=== PATIENT | female | born 1995 | race Caucasian/White ===

== ENCOUNTER 2024-08-08 23:53 | Emergency (ER) | payer OTHER, SELFPAY ==
[2024-08-09 00:02] VITALS: BP 133/67; PULSE 93; TEMP 36.6; O2SAT 100; BMI 33.0
--- NOTE | 2024-08-09 00:30 | ED.SOB1 ---
HPI - SOB/Dyspnea General Chief Complaint: Shortness of Breath/Dyspnea Stated Complaint: SOB Time Seen by Provider: 08/09/24 00:06 Source: patient Mode of arrival: walk-in History of Present Illness HPI Narrative: This 29-year-old female with a history of asthma who does not smoke presents for evaluation of cough, wheezing and shortness of breath. She states she has a moist cough. It started on Monday. She was seen at urgent care and given a prescription for Levaquin. She states she has a dry cough. She has not had a fever. She has had some nasal congestion. She denies any nausea or vomiting. She has no lower extremity pain or swelling. The woman who is with her who is likely her mother states that she is becoming cyanotic when she ambulates and her lips are turning blue. She is not having any chest pain dizziness or syncope. She has no lower extremity pain or swelling. She has been using an inhaler in addition to her antibiotics. Related Data Home Medications ?Medication ?Instructions ?Recorded ?Confirmed Vitamin B 08/09/24 Vitamin D 08/09/24 albuterol 90 mcg/actuation aerosol mcg inhalation 08/09/24 inhaler levofloxacin 500 mg tablet 500 mg PO DAILY 08/09/24 08/09/24 magnesium 08/09/24 Allergies Allergy/AdvReac Type Severity Reaction Status Date / Time Sulfa (Sulfonamide Allergy Severe Swelling Verified 08/09/24 00:18 Antibiotics) of Lip/Tongue/Throat sulfamethoxazole (From Allergy Severe Swelling Verified 08/09/24 00:18 Bactrim) of Lip/Tongue/Throat trimethoprim (From Bactrim) Allergy Severe Swelling Verified 08/09/24 00:18 of Lip/Tongue/Throat venlafaxine (From Effexor) Allergy Severe Unknown Verified 08/09/24 00:18 codeine Allergy Intermediate Rash Verified 08/09/24 00:18 pseudoephedrine (From Allergy Intermediate Dizziness Verified 08/09/24 00:18 Sudafed) Penicillins Allergy Mild Unknown Verified 08/09/24 00:18 Review of Systems ROS Status of ROS 10 or more systems reviewed and unremarkable except as noted in history and below PFSH PFSH Social History Little interest or pleasure in doing things: not at all Feeling down, depressed, or hopeless: not at all Exam Narrative Exam Narrative: Vital signs and Nursing Notes reviewed: Patient is afebrile with a normal pulse, blood pressure is normal. She is not hypoxic with pulse ox of 100% on room air General: Overweight female resting comfortably on the stretcher, no respiratory distress, she speaks in complete sentence without any conversational dyspnea HEENT: Normocephalic atraumatic, mucous membranes are moist and pink, eyes are clear, normal conjunctiva, vision is grossly intact, posterior pharynx is normal in appearance. Tympanic membranes are normal bilaterally Neck: Supple, no meningeal signs Chest: Lungs are clear to auscultation with good air entry, there is no wheezing rhonchi or rales appreciated no accessory muscle use, patient is speaking in complete sentences-no chest wall tenderness to palpation CVS: Regular rate and rhythm S1-S2, no murmurs rubs or gallops, pulses are brisk and equal bilaterally Extremities: Moving all extremities, no lower extremity tenderness or swelling noted, negative Homans' sign, pulses are brisk and equal bilaterally Skin: Normal in appearance without rash,pallor, petechiae or purpura Neuro: No focal deficits Constitutional Vital Signs, click to edit/add: Last Vital Signs Temp 97.9 F 08/09/24 00:02 Pulse 93 H 08/09/24 00:02 Resp 20 08/09/24 00:02 BP 133/67 08/09/24 00:02 Pulse Ox 100 08/09/24 00:02 O2 Del Method Room Air 08/09/24 00:02 Course Vital Signs Vital signs: Vital Signs Temperature 97.9 F 08/09/24 00:02 Pulse Rate 93 H 08/09/24 00:02 Respiratory Rate 20 08/09/24 00:02 Blood Pressure 133/67 08/09/24 00:02 Pulse Oximetry 100 08/09/24 00:02 Oxygen Delivery Method Room Air 08/09/24 00:02 Temperature 97.9 F 08/09/24 00:02 Pulse Rate 93 H 08/09/24 00:02 Respiratory Rate 20 08/09/24 00:02 Blood Pressure 133/67 08/09/24 00:02 Pulse Oximetry 100 08/09/24 00:02 Oxygen Delivery Method Room Air 08/09/24 00:02 MDM - SOB/Dyspnea MDM Narrative Medical decision making narrative: This 29-year-old female presents for evaluation of an ongoing cough. The cough started on Monday. She was seen at urgent care and prescribed Levaquin. She states her cough is not resolved. She has had pneumonia in the past and is concerned that she is developing pneumonia not because she states she still has a harsh cough. Her mother states when she gets up and walks she becomes cyanotic and her lips turn blue. We did test that the emergency department. We had the patient ambulate while wearing a pulse ox and she did not become cyanotic and her pulse ox did not drop. Her pulse ox was 100% at triage. The patient is overweight, non-smoker with a history of asthma. Her lungs are clear. Her exam is benign. Due to her complaints of having pneumonia in the past and her mother stating that she was cyanotic I did a workup including a D-dimer. Her D-dimer is on the high end of normal but still normal at 0.59. She has a normal white count hemoglobin. Electrolytes are normal. Two-view chest x-ray was ordered and is reviewed by myself. There is no acute pulmonary infiltrate, she has a normal mediastinum and normal cardiac borders. She was medicated with a dose of IV Solu-Medrol. She has not had any cough or respiratory difficulty while in the emergency department. I discussed the results of the labs and x-ray with her. I explained to her that clinically she likely has a viral upper respiratory tract infection that will not benefit from antibiotics. Is up to her whether or not she continues with the Levaquin. I feel that a round of steroids and cough medicine would be more appropriate in this setting. She does have Ventolin inhaler to use. She will be discharged home with a prescription for Bromfed-DM and Medrol Dosepak. Lab Data Labs: Lab Results 08/09/24 Range/Units 00:50 WBC 6.6 (4.0-11.0) 10^3/uL RBC 4.64 (4.20-5.40) 10^6/uL Hgb 14.1 (12.0-16.0) g/dL Hct 41.4 (36.0-48.0) % MCV 89.2 (81.0-99.0) fL MCH 30.4 (26.7-34.0) pg MCHC 34.1 (29.9-35.2) g/dL RDW 11.8 (11.0-15.0) % Plt Count 332 (150-450) 10^3/uL MPV 10.8 (9.5-13.5) fL Neut % (Auto) 47.7 (43.0-75.0) % Lymph % (Auto) 32.5 (20.5-60.0) % [place] % (Auto) 13.6 H (1.7-12.0) % Eos % (Auto) 5.3 (0.9-7.0) % Baso % (Auto) 0.6 (0.2-2.0) % Neut # (Auto) 3.2 (1.4-6.5) 10^3/uL Lymph # (Auto) 2.2 (1.2-3.8) 10^3/uL [place] # (Auto) 0.9 H (0.3-0.8) 10^3/uL Eos # (Auto) 0.4 (0.0-0.7) 10^3/uL Baso # (Auto) 0.0 (0.0-0.1) 10^3/uL Abs Immat Gran (auto) 0.02 (0.00-0.03) 10^3/uL Imm/Tot Granulo (auto) 0.3 (0.0-0.5) % D-Dimer 0.59 (<=0.59) mg/L FEU Sodium 139 (136-145) mmol/L Potassium 3.6 (3.5-5.1) mmol/L Chloride 101 (98-107) mmol/L Carbon Dioxide 28.2 (21.0-32.0) mmol/L Anion Gap 13.4 BUN 14.0 (7.0-18.0) mg/dL Creatinine 0.73 (0.55-1.02) mg/dL Est GFR ( Amer) >60 (>=60 mL/min/1.73m^2) Est GFR (Non-Af Amer) >60 (>=60 mL/min/1.73m^2) BUN/Creatinine Ratio 19.2 Glucose 96 (74-106) mg/dL Calcium 9.5 (8.5-10.1) mg/dL Total Bilirubin 0.7 (0.2-1.0) mg/dL AST 8 L (15-37) U/L ALT 21 (14-59) U/L Alkaline Phosphatase 90 (46-116) U/L Total Protein 8.2 (6.4-8.2) g/dL Albumin 3.2 L (3.4-5.0) g/dL Globulin 5.0 g/dL Albumin/Globulin Ratio 0.6 Discharge Plan Discharge Chief Complaint: Shortness of Breath/Dyspnea Clinical Impression: Viral upper respiratory tract infection with cough Patient Disposition: Home, Self-Care Time of Disposition Decision: 02:04 Condition: Good Prescriptions / Home Meds: No Action levofloxacin 500 mg tablet 500 mg PO DAILY albuterol 90 mcg/actuation aerosol inhalation Vitamin D Vitamin B magnesium Print Language: Monegasque Instructions: Upper Respiratory Infection (ED) Referrals: Isis Rivas NP [Primary Care Provider] - 1 week
[2024-08-09 01:06] LABS: Basophils Percent Auto 0.6 % (0.2-2.0); Eosinophils Absolute Auto 0.4 10^3/uL (0.0-0.7); Eosinophils Percent Auto 5.3 % (0.9-7.0); Hematocrit 41.4 % (36.0-48.0); Hemoglobin 14.1 g/dL (12.0-16.0); Immature Granulocytes Abs Auto 0.02 10^3/uL (0.00-0.03); Immature Granulocytes Pct Auto 0.3 % (0.0-0.5); Lymphocytes Absolute Auto 2.2 10^3/uL (1.2-3.8); Lymphocytes Percent Auto 32.5 % (20.5-60.0); Mean Corpuscular HGB Conc 34.1 g/dL (29.9-35.2); Mean Corpuscular Hemoglobin 30.4 pg (26.7-34.0); Mean Corpuscular Volume 89.2 fL (81.0-99.0); Mean Platelet Volume 10.8 fL (9.5-13.5); Monocytes Absolute Auto 0.9 10^3/uL (0.3-0.8); Monocytes Percent Auto 13.6 % (1.7-12.0); Neutrophils Absolute Auto 3.2 10^3/uL (1.4-6.5); Neutrophils Percent Auto 47.7 % (43.0-75.0); Platelet Count 332 10^3/uL (150-450); Red Blood Count 4.64 10^6/uL (4.20-5.40); Red Cell Distribution Width 11.8 % (11.0-15.0)
[2024-08-09 01:07] LABS: White Blood Count 6.6 10^3/uL (4.0-11.0)
[2024-08-09] MEDS: METHYLPREDNISOLONE SOD SUCC PF 125 MG/2 ML VIAL IVP (01:11)
[2024-08-09 01:20] LABS: Alanine Aminotransferase 21 U/L (14-59); Albumin Globulin Ratio 0.6; Albumin Level 3.2 g/dL (3.4-5.0); Alkaline Phosphatase 90 U/L (46-116); Anion Gap 13.4; Aspartate Amino Transferase 8 U/L (15-37); BUN Creatinine Ratio 19.2; Bilirubin Total 0.7 mg/dL (0.2-1.0); Calcium 9.5 mg/dL (8.5-10.1); Carbon Dioxide 28.2 mmol/L (21.0-32.0); Chloride 101 mmol/L (98-107); Estimated GFR (African America >60 (>=60 mL/min/1.73m^2); Estimated GFR (Non-African Ame >60 (>=60 mL/min/1.73m^2); Glucose 96 mg/dL (74-106); Potassium 3.6 mmol/L (3.5-5.1); Sodium 139 mmol/L (136-145); Total Protein 8.2 g/dL (6.4-8.2)
[2024-08-09 01:21] LABS: D Dimer 0.59 mg/L FEU (<=0.59)
--- OUTSIDE RECORDS SUMMARY | 2024-08-09 01:36 | XMS_ITS | Clinical Summary ---
Author Organization [employer] Address [id number] [address] [place] [address] Care Team Providers Care Media Coordinator Name Role Phone Isis Rivas GALINA-HAT BLOCK MAKER Primary Care Provider Allergies Active Allergy Reactions Criticality Noted Date Comments Sulfamethoxazole-Trimetho prim Swelling 12/16/2016 Lip swelling Codeine Hives 12/16/2016 Venlafaxine 10/31/2023 Suicidal ideation Nitrofurantoin Monohyd/M-Cryst Facial Swelling Medium 12/29/2020 Oral swelling to lower lip noted immediately after taking Penicillins 12/16/2016 Never been given penicillin, but both parents are allergic to it Pseudoephedrine Hcl Dizziness 05/03/2020 Sulfa (Sulfonamide Antibiotics) Swelling 01/21/2017 Medications meclizine (ANTIVERT) 25 mg tablet Chew 1 tablet (25 mg total) and swallow 3 (three) times a day as needed for dizziness. TABLET 30 tablet 3 021 Active SUMAtriptan (IMITREX) 50 mg tabletIndications :Migraine with aura and without status migrainosus, not intractable Take 1 tablet (50 mg total) by mouth once as needed for migraine. May repeat in 2 hours if unresolved. Do not exceed 200 mg in 24 hours. 9 tablet 2 024 Active ondansetron ODT (ZOFRAN ODT) 4 mg disintegrating tablet Dissolve 1 tablet (4 mg total) on tongue every 8 (eight) hours as needed for nausea for up to 10 doses. 10 tablet 024 Active fluticasone propionate (FLONASE) 50 mcg/actuation nasal spray Administer 1 spray into each nostril in the morning. 16 mL 2 024 Active Additional Information Patient not taking.Reported on 07/08/2024 cyanocobalamin (vitamin B-12) 1000 MCG tablet Take 1 tablet (1,000 mcg total) by mouth in the morning. 90 tablet 3 025 Active triamcinolone (KENALOG) 0.5 % ointment Apply 1 Application topically in the morning and 1 Application before bedtime. 60 g 2 025 Active Additional Information Patient taking differently:1 Application topicalAs needed, Reported on 07/08/2024 ibuprofen (MOTRIN) 800 mg tablet Take 1 tablet (800 mg total) by mouth in the morning and 1 tablet (800 mg total) in the evening. Take with meals. 60 tablet 1 025 Active Additional Information Patient taking differently:800 mg oral2 times daily, Reported on 07/08/2024 ergocalciferol (VITAMIN D2) 1,250 mcg (50,000 unit) capsule Take 1 capsule (50,000 Units total) by mouth once a week. 12 capsule 025 Active VENTOLIN HFA 90 mcg/actuation inhalerIndication s:Mild intermittent asthma with acute exacerbation Inhale 2 puffs every 6 (six) hours as needed for wheezing or shortness of breath. 18 g 5 025 Active magnesium oxide (MAGOX) 400 mg tablet Take 1 tablet (400 mg total) by mouth in the morning. 90 tablet 3 025 Active norethindrone ac-eth estradioL (FEMHRT 03/03) 1-5 mg-mcg tablet Take 1 tablet by mouth in the morning. 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 Migraines, anxiety, depression, history of panic attacks with Urolithiasis; CT 11/21/2023 right 2.8 mm nonobstructing stone-stable CT 04/22/2024; Jake 2. Concern for medullary sponge kidneys CT 11/21/2023 ruled out by [facility] 01/20/2024 3. By history history of renal mass [address] With no renal mass with CT without and with contrast 11/21/2023 4. Sexually active with By history veryrecurrent UTIs high school now just occasional UTI with gross hematuria with positive E coli culture 10/24/2014 other [facility] cultures from 2014, July, November, and December 2020 5. By history prior cystoscopy x2 [facility] not by our group prior to 2013 per patient secondary to recurrent urinary infection with passing bits of tissue and blood 6. Gross hematuria by history infection related 7. Family history stones mother and aunts and uncles 8. Right flank pain identified 2023 with only nonobstructing very small right renal stone by CT and February 2024 lower midline abdominal and left flank pain 9. Ongoing delay of micturition with History childhood forced severe delay of micturition at school producing pain 10. Very low urinary volume 11. Hypomagnesuria 12. Hyperuricosuria but very normal super saturation uric acid secondary to high urinary pH 13. Hypernaturia 14. Mild hypocitraturia 15. PVR 14 mL 05/10/[address] March 2024; K[facility] December 2023; litho link February 2024 Migraine with aura and witho ut status migrainosus, not intractable 03/25/2021 Episodic recurrent vertigo 03/25/2021 Depression 03/25/2021 Anxiety 10/15/2020 Panic attack 10/15/2020 BPPV (benign paroxysmal positional vertigo), lef t 08/27/2020 Dizziness 08/11/2020 Tinnitus 08/11/2020 Palpitations 07/17/2020 Resolved Problems Problem Noted Date Diagnosed Date Resolved Date Medullary sponge kidney 11/27/202302/27 Headache 09/17/2020 12/28/2020 Vertigo of central origin, u nspecified laterality 08/27/2020 12/28/2020 Vertigo 08/11/2020 12/28/2020 Shortness of breath 07/17/2020 12/29/19 Other chest pain 07/17/2020 12/28/2020 Encounters Date Type Department Care Team Description 07/29/2024 Refill [facility] [address] [place] [address] [place] [address] Isis Rivas APRN-ARPITA 07/28/2024 Refill [facility] [address] [place] [address] [place] [address] Isis Rivas APRN-ARPITA 07/08/2024 11:40 AM EDT Office Visit [facility] [address] [place] [address] [place] [address] Isis Rivas APRN-CNP Rash (Primary Dx) 07/08/2024 Travel 07/01/2024 Refill [facility] [address] [place] [address] [place] [address] Isis Rivas APRN-ARPITA 06/07/2024 2:00 PM EDT - 06/07/2024 2:30 PM EDT Surgery [facility] - Surgery [address] [place] [address] Dheeraj Jacobs Jr., MD CYSTOSCOPY [61734 (CPT )] 06/07/2024 1:01 PM EDT - 06/07/2024 3:07 PM EDT Hospital Encounter [facility] - Surgery [address] [place] [address] Dheeraj Jacobs Jr., MD Recurrent kidney stones (Primary Dx) Discharge Disposition: Home 06/07/2024 Telephone [facility] [address] [place] [phone] Dheeraj Jacobs Jr., MD 06/07/2024 Travel 06/06/2024 3:50 PM EDT Support Visit [facility] - Pre Admit [address] [place] [address] 06/04/2024 3:52 PM EDT - 06/04/2024 4:25 PM EDT Emergency [facility] - Emergency [address] [place] [phone] Jose Cotto MD Abrasion of sclera of right eye, initial encounter (Primary Dx) Discharge Disposition: Home 06/04/2024 Travel 06/04/2024 Refill [facility] [address] [place] [address] [place] [address] Isis Rivas APRN-ARPITA 05/10/2024 11:45 AM EDT Office Visit [facility] [address] [place] [address] [place] [address] [place] [address] Dheeraj Jacobs Jr., MD Urologic disorders (Primary Dx); Recurrent kidney stones; Microscopic hematuria; History of recurrent UTIs 05/10/2024 Telephone [facility] [address] [place] [address] Dheeraj Jacobs Jr., MD from Last 3 Months Immunizations Immunization Administration Dates Next Due DTaP, Unspecified 06/28/2001, 8,1996,1996,0 1996 Hep B, Adolescent or Pediatric 1996,1996,1996 HiB 02/06/1997,1996,1996 ,1996 MMR 06/28/2001,02/06/1997 OPV 1996,1996,1996 Polio, Unspecified 06/28/2001 Family History Medical History Relation Name Comments Hypertension Father Heart attack Maternal Aunt 1 Ganette Pancreatitis Maternal Aunt 1 Ganette Thyroid Issues Maternal Aunt 1 Ganette Cervical cancer Maternal Aunt 2 Sahra Anemia Maternal Grandmother Cancer Maternal Grandmother Cervical cancer Maternal Grandmother Heart attack Maternal Grandmother Kidney disease Maternal Grandmother Heart attack Maternal Uncle 1 Ray Heart attack Maternal Uncle 3 Bernabe jr. Hypertension Mother Migraines Mother Thyroid Issues Mother Anxiety disorder Other Hypotension Other Kidney disease Other Kidney disease Paternal Aunt kidney mass Relation Name Status Comments Father Alive Maternal Aunt 1 Ganette Alive Maternal Aunt 2 Sahra Alive Maternal Grandmother Alive Maternal Uncle 1 Ray Alive Maternal Uncle 2 Lester Alive Maternal Uncle 3 Bernabe jr. Alive Mother Alive Other Paternal Aunt Sister Alive Social History Tobacco Use Types Packs/Day Years Used Date Smoking Tobacco: Never Smokeless Tobacco: Never Tobacco Cessation:Counseling Given: Not Answered Alcohol Use Standard Drinks/Week Comments Yes 0 (1 standard drink = 0.6 oz pur e alcohol) occasional PHQ-2 Answer Date Recorded Total Score 11 10/31/2023 Childcare Answer Date Recorded Childcare Unknown 08/06/2018 Employment Answer Date Recorded Employment Unknown 08/06/2018 Hunger Screening Answer Date Recorded Within the past 12 months we worried whether our food would run out before we got money to buy more. Never True 05/10/2024 Within the past 12 months th e food we bought just didn't last and we didn't have money to get more. Never True 05/10/2024 Purpose - Life Answer Date Recorded Purpose and direction in life Unknown Comments No Sex and Gender Information Value Date Recorded Sex Assigned at Not on file Legal Sex Female 1:05 PM EDT Gender Identity Not on file Sexual Orientation Not on file Last Filed Vital Signs Vital Sign Reading Time Taken Comments Blood Pressure 130/72 07/08/2024 11:24 AM EDT Pulse 73 07/08/2024 11:24 AM EDT Temperature 36.8 C (98.3 F) 07/08/2024 11:24 AM EDT Respiratory Rate 18 06/04/2024 4:05 PM EDT Oxygen Saturation 98% 07/08/2024 11: 24 AM EDT Inhaled Oxygen Concentration - - Weight 97.4 kg (214 lb 12.8 oz) 025 11:24 AM EDT Height 165.1 cm (5' 5 ) 07/08/2024 11:2 4 AM EDT Body Mass Index 35.74 07/08/2024 11:24 AM EDT Plan of Treatment Upcoming Encounters Date Type Department Care Team (Late st Contact Info) Description 08/19/2024 2:40 PM EDT Office Visit [facility] [address] [place] [address] [place] [address] Isis Rivas, [employer]-HAT BLOCK MAKER [address] [place] [address], [place] [address] 10/04/2024 9:15 AM EDT Office Visit [facility] [address] [place] [address] [place] [address] Dheeraj Jacobs Jr., MD [address] [place] [address] Health Maintenance Due Date Last Done Comments DTaP,Tdap and Td Vaccines (6 - Tdap) 02/03/2007 06/28/2001, 05/29/1997, 1996, Additional history exists Adult BMI Follow Up Plan 02/03/2014 Pap Smear 02/03/2017 Influenza Vaccine 10/28/2024 Depression Screening 10/30/2024 10/31/2023 Adult BMI Screening 07/08/2025 07/08/2024 Tobacco Screening 07/08/2025 07/08/2024 Medical Devices Not on file Procedures Procedure Name Priority Date/Time Associated Diagnosis Comments GA CYSTOURETHROSCOPY 06/07/2024 2:12 PM EDT Microscopic hematuria PM ED FOREIGN BODY REMOVAL - OCULAR Routine 06/04/2024 4:11 PM EDT MEASURE POST VOID RESIDUAL Routine 05/10/2024 12:39 PM EDT Urologic disorders from Last 3 Months Results * Foreign Body Removal - Ocular (06/04/2024 4:11 PM EDT) Jose Mclean MD - 06/04/2024 4:11 PM EDT Jose Cotto MD 06/09/2024 8:33 PM Foreign Body Removal - Ocular Date/Time: 06/04/2024 4:11 PM Performed by: Jose Cotto MD Authorized by: Jose Cotto MD Consent: Consent obtained: Verbal Consent given by: Patient Risks, benefits, and alternatives were discussed: yes Risks discussed: Pain, infection and incomplete removal [place] protocol: Procedure explained and questions answered to patient or proxy's satisfaction: yes Relevant documents present and verified: yes Patient identity confirmed: Verbally with patient and hospital-assigned identification number Pre-procedure details: Imaging: None Fluorescein exam: yes Anesthesia: Local anesthetic: Tetracaine drops Procedure details: Localization method: Wood's lamp and fluorescein Foreign bodies recovered: None Post-procedure details: Confirmation: No additional foreign bodies on visualization Dressing: Antibiotic drops Procedure completion: Tolerated well, no immediate complications us Jose Cotto MD PROCEDURE/MINOR SURGICAL ORDERA BLES Final Result * Measure post void residual (05/10/2024 12:39 PM EDT) Volume 14ml MANUALLY TRANSCRIBED RESULTS us Dheeraj Jacobs Jr., MD NURSING ASSESSMENTS Marilyn arevalo Result Performing Organization Address City/State/[facility] Co de Phone Number MANUALLY TRANSCRIBED RESULTS from Last 3 Months Insurance [facility] WORKER'S COMPENSATION WORKER'S COMPENSATION [facility] Care Teams Media Coordinator Relationship Specialty Start Date End Date Isis Rivas APRN-CNP [address] [place] [phone] PCP - General Nurse Practitioner 10/31/23
--- OUTSIDE RECORDS SUMMARY | 2024-08-09 01:36 | XMS_ITS | Encounter Summary ---
Author Organization [facility] Address [id number] [address] [place] [address] Care Team Providers Care Host Coordinator Name Role Phone Isis Rivas GALINA-JACKSPOOLER Primary Care Provider Encounter Details Date Type Department Care Team (Late st Contact Info) Description 09/18/2020 [facility] [address] [place] [phone] Dede Cruz Social History Tobacco Use Types Packs/Day Years Used Date Smoking Tobacco: Never Smokeless Tobacco: Never Alcohol Use Standard Drinks/Week Comments Yes 0 (1 standard drink = 0.6 oz pur e alcohol) occasional Childcare Answer Date Recorded Childcare Unknown 08/06/2018 Employment Answer Date Recorded Employment Unknown 08/06/2018 Purpose - Life Answer Date Recorded Purpose and direction in life Unknown Comments No Sex and Gender Information Value Date Recorded Sex Assigned at Not on file Legal Sex Female 1:05 PM EDT Gender Identity Not on file Sexual Orientation Not on file COVID-19 Exposure Response Date Recorded In the last month, have you been in contact with someone who was confirmed or suspected to have Coronavirus / COVID-19? No / Unsure 09/17/2020 2:48 PM EDT documented as of this encounter Miscellaneous Notes * Telephone Encounter - Dede Cruz - 09/18/2020 9:19 AM EDT Received new patient referral. Please call patient to schedule a new patient appointment for Dizziness R51.9 (ICD-10-CM) - Intractable headache, unspecified chronicity pattern, unspecified headache type *[place] * Telephone Encounter - Pao Manzanooza - 09/18/2020 9:19 AM EDT Patient is scheduled for 10/15/20 @ 9:00am with Dr. Mott in [place] documented in this encounter Plan of Treatment Upcoming Encounters Date Type Department Care Team (Late st Contact Info) Description 08/19/2024 2:40 PM EDT Office Visit [facility] [address] [place] [address] [place] [address] Isis Rivas APRN-CNP [address] [place] [address], [place] [address] 10/04/2024 9:15 AM EDT Office Visit [facility] [address] [place] [address] [place] [address] [place] [address] Dheeraj Jacobs Jr., MD [address] [place] [phone] documented as of this encounter Visit Diagnoses Not on filedocumented in this encounter Additional Health Concerns Infection Onset Date Last Indicated Resolved Time COVID-19 Rule-Out 01/14/2024 01/14/2024 01/14/2024 6:51 PM EST documented as of this encounter Care Teams Host Coordinator Relationship Specialty Start Date End Date Isis Rivas APRN-CNP [address] [place] [phone] PCP - General Nurse Practitioner 10/31/23 documented as of this encounter
--- OUTSIDE RECORDS SUMMARY | 2024-08-09 01:36 | XMS_ITS | Clinical Summary ---
Author Organization [facility] Address [address] [place] [address] Care Team Providers Care Boring Machine Operator Double End Name Role Phone Unallocated, Noms Provider MD Primary Care Provi alyssa Allergies Active Allergy Reactions Criticality Noted Date Comments Acetaminophen-Codeine Unknown 09/15/2022 Cephalexin Swelling 09/15/2022 Codeine 12/16/2016 Nitrofurantoin Unknown 09/15/2022 Penicillins 12/16/2016 Pseudoephedrine Dizziness 09/15/2022 Sulfa Antibiotics Unknown 09/15/2022 Venlafaxine 10/31/2023 Suicidal ideation Medications albuterol (ProAir Digihaler) 90 mcg/act breath-activated inhaler (w/ sensor) Albuterol Active cholecalciferol (Vitamin D-3) 50 MCG (2000 UT) capsule Take 4,000 Units by mouth in the morning. Active cyanocobalamin (Vitamin B-12) 1000 MCG tablet Take 1,000 mcg by mouth in the morning. Active ondansetron ODT (Zofran-ODT) 4 MG disintegrating tablet Take 4 mg by mouth every 8 (eight) hours if needed 4 Active SUMAtriptan (Imitrex) 50 MG tablet Take 50 mg by mouth 1 (one) time if needed 4 Active Meclizine HCl 25 MG chewable tablet CHEW AND SWALLOW ONE TABLET EVERY 6 HOURS NEEDED FOR DIZZINESS 4 Active Cranberry-Vitamin C-Probiotic (AZO CRANBERRY PO) Take by mouth Ac tive Acetaminophen (MIDOL PO) Take by mouth Activ e norgestimate-ethin yl estradiol (Sprintec 28) 0.25-35 MG-MCG tabletIndications: Oral contraceptive pill surveillance 1 tab every day for 84 days. Then allow a withdrawal bleed for 7 days. Repeat 112 tablet 3 Active Family History Medical History Relation Name Comments Diabetes Father Hypertension Father ADD / ADHD Mother Cancer Mother Heart disease Mother Hypertension Mother Heart issues Mother's Brother Heart issues Mother's Sister Pancreatitis Mother's Sister Relation Name Status Comments Father Alive Mother Alive Mother's Brother Mother's Sister Social History Tobacco Use Types Packs/Day Years Used Date Smoking Tobacco: Never Smokeless Tobacco: Never Tobacco Cessation:Counseling Given: Not Answered Alcohol Use Standard Drinks/Week Comments Yes 1 (1 standard drink = 0.6 oz pur e alcohol) Comments No Sex and Gender Information Value Date Recorded Sex Assigned at Not on file Legal Sex Female 6:33 PM EDT Gender Identity Not on file Sexual Orientation Not on file Last Filed Vital Signs Vital Sign Reading Time Taken Comments Blood Pressure 122/76 04/10/2024 2:07 PM EST Pulse - - Temperature - - Respiratory Rate - - Oxygen Saturation - - Inhaled Oxygen Concentration - - Weight 88.5 kg (195 lb) 04/10/2024 2:07 PM EST Height 163.8 cm (5' 4.5 ) 06/23/2022 12:00 PM ED T Body Mass Index 32.95 06/23/2022 12:00 PM EDT Plan of Treatment Upcoming Encounters Date Type Department Care Team (Late st Contact Info) Description 04/16/2025 11:30 AM EST Office Visit [facility] [address] [facility] [address] [place] [phone] Cain Elizondo MD [address] [facility] [address] [place] [address] Health Maintenance Due Date Last Done Comments Influenza Vaccine (Season Ended) 2024 Insurance [facility] Care Teams Boring Machine Operator Double End Relationship Specialty Start Date End Date Unallocated, Noms Provider, [address] [place], [place] [phone] PCP - General Family Medicine 04/04/23
--- OUTSIDE RECORDS SUMMARY | 2024-08-09 01:36 | XMS_ITS | Encounter Summary ---
Author Organization [facility] Address [facility] [id number] [address] [place] [address] Care Team Providers Care Carbon Paper Machine Operator Name Role Phone Isis Rivas CNC ROUTER OPERATOR-NUCLEAR FUELS RECLAMATION ENGINEER Primary Care Provider Reason for Visit * Reason Comments Med Refill Encounter Details Date Type Department Care Team (Late st Contact Info) Description 01/19/2024 Refill [facility] [address] [place] [address] Isis Rivas APRN-CNP [address] [place] [address], [place] [address] Social History Tobacco Use Types Packs/Day Years [...] got money to buy more. Never True 01/19/2024 Within the past 12 months th e food we bought just didn't last and we didn't have money to get more. Never True 01/19/2024 Purpose - Life Answer Date Recorded Purpose and direction in life Unknown Comments No Sex and Gender Information Value Date Recorded Sex Assigned at Not on file Legal Sex Female 1:05 PM EDT Gender Identity Not on file Sexual Orientation Not on file documented as of this encounter Plan of Treatment Upcoming Encounters Date Type Department Care Team (Late st Contact Info) Description 08/19/2024 2:40 PM EDT Office Visit [facility] [address] [place] [address] [place] [address] Isis Rivas APRN-CNP [address] [place] [address] [place] [address] 10/04/2024 9:15 AM EDT Office Visit [facility] [address] [place] [address] A [facility] [place] [address] Dheeraj Jacobs Jr., MD [address] [place] [address] documented as of this encounter Visit Diagnoses Not on filedocumented in this encounter Additional Health Concerns Assessment Noted Time PHQ-9 Depression Total Score: 11 024 3:03 PM EDT A Body Mass Index follow-up plan has been documented for the patient 03/25/2021 2:31 PM EST documented as of this encounter Care Teams Carbon Paper Machine Operator Relationship Specialty Start Date End Date Isis Rivas APRN-CNP [address] [place] [phone] PCP - General Nurse Practitioner 10/31/23 documented as of this encounter
--- OUTSIDE RECORDS SUMMARY | 2024-08-09 01:36 | XMS_ITS | Encounter Summary ---
Author Organization [facility] [employer] Sys tem Address [facility] [id number] [address] [place] [address] Care Team Providers Care Soft Work Cigar Machine Operator Name Role Phone Isis Rivas DINKEY BRAKEMAN-CITY COUNCILMAN Primary Care Provider Reason for Visit * Reason Comments Med Refill Encounter Details Date Type Department Care Team (Late st Contact Info) Description 07/28/2024 Refill [facility] [address] [place] [address] Isis Rivas APRN-CNP [address] [place] [address], [place] [address] Social History Tobacco Use Types [...] Office Visit [facility] [address] [place] [address] [place] [address] Isis Rivas APRN-CNP [address] [place] [address] [place] [address] 10/04/2024 9:15 AM EDT Office Visit [facility] [address] [place] [address] [facility] [place] [address] Dheeraj Jacobs Jr., MD [address] [place] [address] documented as of this encounter Visit Diagnoses Not on filedocumented in this encounter Additional Health Concerns Assessment Noted Time PHQ-9 Depression Total Score: 11 024 3:03 PM EDT A Body Mass Index follow-up plan has been documented for the patient 03/25/2021 2:31 PM EST documented as of this encounter Care Teams Soft Work Cigar Machine Operator Relationship Specialty Start Date End Date Isis Rivas APRN-CNP [address] [place] [phone] PCP - General Nurse Practitioner 10/31/23 documented as of this encounter
--- OUTSIDE RECORDS SUMMARY | 2024-08-09 01:36 | XMS_ITS | Encounter Summary ---
Author Organization [facility] [employer] s tem Address [facility] [id number] [address] [place] [address] Care Team Providers Care Utility Plant Operative Name Role Phone Isis Rivas APRN-DANCE HISTORIAN Primary Care Provider Encounter Details Date Type Department Care Team (Late st Contact Info) Description 04/01/2024 Orders Only [facility] [address] [place] [address] Roshni Simeon Recurrent kidney stones Social History Tobacco Use Types Packs/Day Years [...] got money to buy more. Never True 03/08/2024 Within the past 12 months th e food we bought just didn't last and we didn't have money to get more. Never True 03/08/2024 Purpose - Life Answer Date Recorded Purpose [...] Office Visit [facility] [address] [place] [address] Isis Rivas APRN-CNP [address] [place] [address], [facility] [place] [address] 10/04/2024 9:15 AM EDT Office Visit [facility] [address] [place] [address] Dheeraj Jacobs Jr., MD [address] [place] [address] documented as of this encounter Procedures Procedure Name Priority Date/Time Associated Diagnosis Comments LITHOLINK 48 HOUR Routine 03/24/2024 Recurrent kidney stones documented in this encounter Results * Litholink 48 Hour ([facility]) (03/24/2024) 03/24/2024 us Dheeraj Jacobs Jr., MD URINE ORDERABLES Final R esult MANUALLY TRANSCRIBED RESULTS documented in this encounter Visit Diagnoses Diagnosis Recurrent kidney stones documented in this encounter Additional Health Concerns Assessment Noted Time PHQ-9 Depression Total Score: 11 024 3:03 PM EDT A Body Mass Index follow-up plan has been documented for the patient 03/25/2021 2:31 PM EST documented as of this encounter Care Teams Utility Plant Operative Relationship Specialty Start Date End Date Isis Rivas APRN-CNP [address] [place] [phone] PCP - General Nurse Practitioner 10/31/23 documented as of this encounter
--- OUTSIDE RECORDS SUMMARY | 2024-08-09 01:36 | XMS_ITS | Encounter Summary ---
Author Organization [facility] [employer] s tem Address [facility] [id number] [address] [place] [address] Care Team Providers Care Wound Care Physician Name Role Phone Isis Rivas GALINA-BROOMCORN SCRAPER Primary Care Provider Encounter Details Date Type Department Care Team (Late st Contact Info) Description 06/30/2020 Telephone [facility] [address] [place] [phone] Ann Dejesus MA Social History Tobacco Use Types Packs/Day Years [...] have Coronavirus / COVID-19? No / Unsure 06/30/2020 11:27 AM EDT documented as of this encounter Miscellaneous Notes * Telephone Encounter - Ann Dejesus CMA - 06/30/2020 3:02 PM EDT Discussed leave of absence with denise and she says it's ago documented in this encounter Plan of Treatment Upcoming Encounters Date Type Department Care Team (Late st Contact Info) Description 08/19/2024 2:40 PM EDT Office Visit [facility] [address] [place] [address] [place] [address] Isis Rivas APRN-CNP [address] [place] [address] 10/04/2024 9:15 AM EDT Office Visit [facility] [address] [place] [address] A [facility] [place] [address] Dheeraj Jacobs Jr., MD [address] [place] [address] documented as of this encounter Visit Diagnoses Not on filedocumented in this encounter Additional Health Concerns Infection Onset Date Last Indicated Resolved Time COVID-19 Rule-Out 01/14/2024 01/14/2024 01/14/2024 6:51 PM EST documented as of this encounter Care Teams Wound Care Physician Relationship Specialty Start Date End Date Isis Rivas APRN-CNP [address] [place] [phone] PCP - General Nurse Practitioner 10/31/23 documented as of this encounter
--- OUTSIDE RECORDS SUMMARY | 2024-08-09 01:36 | XMS_ITS | Encounter Summary ---
Author Organization [facility] tem Address [facility] [id number] [address] [place] [address] Care Team Providers Care Clinical Care Manager Name Role Phone Isis Rivas JEWEL SAWYER-DIGITAL RESEARCH ANALYST Primary Care Provider Encounter Details Date Type Department Care Team (Late st Contact Info) Description 02/01/2024 Telephone [facility] [address] [place] [address] Isis Rivas APRN-CNP [address] [place], [place] [address] Social History Tobacco Use Types [...] got money to buy more. Never True 02/01/2024 Within the past 12 months th e food we bought just didn't last and we didn't have money to get more. Never True 02/01/2024 Purpose - Life Answer Date Recorded Purpose and direction in life Unknown Comments No Sex and Gender Information Value Date Recorded Sex Assigned at Not on file Legal Sex Female 1:05 PM EDT Gender Identity Not on file Sexual Orientation Not on file documented as of this encounter Miscellaneous Notes * Telephone Encounter - Sloane Garcia - 02/01/2024 3:28 PM EST Spoke with Layla from [facility] pertaining to records from Dr. Fausto Remy, Urologist. Explained to Layla that we are unable to see records from that office despite being a [facility] facility and wanting to see if on her end she is able to identify any medical records from years ago. Layla did note that she sees a note from 2014 that she is faxing over. Other than that, there is nothing. She is going to check an older system to see if there are additional records that she is able to fax over. Anything beyond the 10 year retention period will not show for her. Layla is faxing what she has over now and will fax additional information if any. Thank you. * Telephone Encounter - TIMMY Abdalla - 02/01/2024 3:28 PM EST Thank you documented in this encounter Plan of Treatment Upcoming Encounters Date Type Department Care Team (Late st Contact Info) Description 08/19/2024 2:40 PM EDT Office Visit [facility] [address] [place] [address] [place] [address] Isis Rivas APRN-CNP [address] [place] [address], [place] [address] 10/04/2024 9:15 AM EDT Office Visit [facility] [address] [place] [address] [place] [address] Dheeraj Jacobs Jr., MD [address] [place] [phone] documented as of this encounter Visit Diagnoses Not on filedocumented in this encounter Additional Health Concerns Assessment Noted Time PHQ-9 Depression Total Score: 11 024 3:03 PM EDT A Body Mass Index follow-up plan has been documented for the patient 03/25/2021 2:31 PM EST documented as of this encounter Care Teams Clinical Care Manager Relationship Specialty Start Date End Date Isis Rivas APRN-CNP [address] [place] [phone] PCP - General Nurse Practitioner 10/31/23 documented as of this encounter
--- OUTSIDE RECORDS SUMMARY | 2024-08-09 01:36 | XMS_ITS | Encounter Summary ---
Author [facility] Address [facility] [id number] [address] [place] [address] Care Team Providers Care Van Loader Name Role Phone Isis Rivas APRN-PATTERNMAKER PRESSURE CAST Primary Care Provider Reason for Visit * Reason Onset Date Comments Results 05/06/2024 Encounter Details Date Type Department Care Team (Late st Contact Info) Description 05/06/2024 [facility] [address] [place] [address] [address] Berta Atkins CNA Results Social History Tobacco Use Types Packs/Day Years [...] encounter Miscellaneous Notes * Telephone Encounter - Berta Atkins CNA - 05/06/2024 9:38 AM EDT ----- Message from TIMMY Abdalla sent at 05/05/2024 10:36 AM EDT ----- Vitamin D remains low. Supplement sent * Telephone Encounter - Berta Atkins CNA - 05/06/2024 9:38 AM EDT Spoke with Trice. Verbalized understanding. She stated pharmacy will not fill the inhaler sent in. The prescription needs to be for Brand name Ventolin and not albuterol. * Telephone Encounter - TIMMY Abdalla - 05/06/2024 9:38 AM EDT I thought it did send it as Ventolin knee brown however I tried it again. Please let me know if this does not work documented in this encounter Plan of Treatment Upcoming Encounters Date Type Department Care Team (Late st Contact Info) Description 08/19/2024 2:40 PM EDT Office Visit [facility] [address] [place] [address] [place] [address] Isis Rivas APRN-CNP [address] [place] [address], [facility] [address] 10/04/2024 9:15 AM EDT Office Visit [facility] [address] [place] [address] [place] [address] Dheeraj Jacobs Jr., MD [facility] [place] [address] documented as of this encounter Visit Diagnoses Not on filedocumented in this encounter Additional Health Concerns Assessment Noted Time PHQ-9 Depression Total Score: 11 024 3:03 PM EDT A Body Mass Index follow-up plan has been documented for the patient 03/25/2021 2:31 PM EST documented as of this encounter Care Teams Van Loader Relationship Specialty Start Date End Date Isis Rivas APRN-CNP [address] [place] [phone] PCP - General Nurse Practitioner 10/31/23 documented as of this encounter
--- OUTSIDE RECORDS SUMMARY | 2024-08-09 01:36 | XMS_ITS | Encounter Summary ---
Author Organization [facility] [employer] Sys [employer] Address [facility] [place][id number] [address] [place] [address] Care Team Providers Care Seam Press Operator Name Role Phone Isis Rivas GALINA-OR MANAGER Primary Care Provider Encounter Details Date Type Department Care Team (Late st Contact Info) Description 03/08/2024 Telephone [facility] [address] [place] [phone] Rosy Swain RMA Social History Tobacco Use Types Packs/Day Years [...] encounter Miscellaneous Notes * Telephone Encounter - Rosy JESSE Swain - 03/08/2024 10:40 AM EST Pt just left her appointment. She said she is to have some lab work done. The expected date on the labs is 04/08/2024, but she thought you said to get them done now? documented in this encounter Plan of Treatment Upcoming Encounters Date Type Department Care Team (Late st Contact Info) Description 08/19/2024 2:40 PM EDT Office Visit [facility] [address] [place] [address] [place] [address] Isis Rivas APRN-CNP [address] [place] [address], [place] [address] 10/04/2024 9:15 AM EDT Office Visit [facility] [address] [place] [address] [place] [address] Dheeraj Jacobs Jr., MD [address] [place] [address] documented as of this encounter Visit Diagnoses Not on filedocumented in this encounter Additional Health Concerns Assessment Noted Time PHQ-9 Depression Total Score: 11 024 3:03 PM EDT A Body Mass Index follow-up plan has been documented for the patient 03/25/2021 2:31 PM EST documented as of this encounter Care Teams Seam Press Operator Relationship Specialty Start Date End Date Isis Rivas APRN-CNP [address] [place] [phone] PCP - General Nurse Practitioner 10/31/23 documented as of this encounter
--- OUTSIDE RECORDS SUMMARY | 2024-08-09 01:36 | XMS_ITS | Encounter Summary ---
Author Organization [facility] [employer] Sys tem Address [facility] [place][id number] [address] [place] [address] Care Team Providers Care Tetryl Nitrator Operator Name Role Phone Isis Rivas SECURITY SCREENER-PLASTICS DESIGN ENGINEER Primary Care Provider Reason for Visit * Reason Comments Med Refill Encounter Details Date Type Department Care Team (Late st Contact Info) Description 07/29/2024 Refill [facility] [address] [place] [address] Isis Rivas APRN-CNP [address] [place] [address], [place] [address] Social History Tobacco Use Types [...] Office Visit [facility] [address] [place] [address] [place] [address] Isis Rivas APRN-CNP [address] [place] [address] [place] [address] 10/04/2024 9:15 AM EDT Office Visit [facility] [address] [place] [address] [place] [address] Dheeraj Jacobs Jr., MD [address] [place] [address] documented as of this encounter Visit Diagnoses Not on filedocumented in this encounter Additional Health Concerns Assessment Noted Time PHQ-9 Depression Total Score: 11 024 3:03 PM EDT A Body Mass Index follow-up plan has been documented for the patient 03/25/2021 2:31 PM EST documented as of this encounter Care Teams Tetryl Nitrator Operator Relationship Specialty Start Date End Date Isis Rivas APRN-CNP [address] [place] [phone] PCP - General Nurse Practitioner 10/31/23 documented as of this encounter
--- OUTSIDE RECORDS SUMMARY | 2024-08-09 01:36 | XMS_ITS | Encounter Summary ---
Author Organization [facility] [employer] s tem Address [facility] [place]-[id number] [address] [place] [address] Care Team Providers Care Tester Wafer Substrate Name Role Phone Isis Rivas WIRELESS ARCHITECT-POULTRY BUYER Primary Care Provider Encounter Details Date Type Department Care Team (Late st Contact Info) Description 06/19/2020 Orders Only [facility] [address] [place] [phone] Deep Lott WIRELESS ARCHITECT-POULTRY BUYER [address] [facility]. [address] [place] [address] Social History Tobacco Use Types Packs/Day Years [...] have Coronavirus / COVID-19? No / Unsure 06/18/2020 1:13 PM EDT documented as of this encounter Plan of Treatment Upcoming Encounters Date Type Department Care Team (Late st Contact Info) Description 08/19/2024 2:40 PM EDT Office Visit [facility] [address] [place] [address] [place] [address] Isis Rivas APRN-CNP [address] [place] [address] 10/04/2024 9:15 AM EDT Office Visit [facility] [address] [place] [address] [place] [address] Dheeraj Jacobs Jr., MD [address] [place] [address] documented as of this encounter Visit Diagnoses Not on filedocumented in this encounter Additional Health Concerns Infection Onset Date Last Indicated Resolved Time COVID-19 Rule-Out 01/14/2024 01/14/2024 01/14/2024 6:51 PM EST documented as of this encounter Care Teams Tester Wafer Substrate Relationship Specialty Start Date End Date Isis Rivas APRN-CNP [address] [place] [phone] PCP - General Nurse Practitioner 10/31/23 documented as of this encounter
[2024-08-09 02:21] VITALS: BP 112/71; PULSE 84; O2SAT 99
== END 2024-08-09 02:24 | disposition home or self-care (01) ==
PROVIDERS: Emergency Provider Emergency Medicine; PCP Nurse Practitioner Family
DX: J06.9 Acute upper respiratory infection, unspecified (principal); R05.9 Cough, unspecified; R06.2 Wheezing; R06.02 Shortness of breath; R09.81 Nasal congestion
CPT/HCPCS: 36415; 71046; 80053; 85025; 85378; 96374; 99285; J2919